=== PATIENT | male | born 1990 ===

== ENCOUNTER 2022-11-01 12:05 | Outpatient (CLI) | payer OTHER, SELFPAY | END 2022-11-01 12:06 | disposition home or self-care (01) | LOC: AMB 01-28 14:04 | PROVIDERS: Visit Provider Family Medicine | DX: I49.9 Cardiac arrhythmia, unspecified (principal); R51.9 Headache, unspecified; R11.2 Nausea with vomiting, unspecified | CPT/HCPCS: A0425; A0427 ==